=== PATIENT | male | born 1945 | race Caucasian/White ===

== ENCOUNTER → 2017-08-25 13:12 | Outpatient (POV) | payer MEDICARE, SELFPAY | DX: Z00.00 Encounter for general adult medical examination without abnormal findings (principal) ==

== ENCOUNTER → 2021-02-12 09:35 | Outpatient (CLI) | payer MEDICARE, OTHER, SELFPAY ==
[2021-02-12 10:50] LABS: Alanine Aminotransferase 12 U/L (12-78); Aspartate Amino Transferase 21 U/L (17-59); Blood Urea Nitrogen 17 mg/dl (9-20); Carbon Dioxide 30 mmol/L (22.0-30.0); Estimated Glomerular Filt Rate 83 ml/min (>60); GFR (African American) 100 ML/MIN (>60)
[2021-02-12 10:51] LABS: Alkaline Phosphatase 78 U/L (38-126); Anion Gap 13.5 mEq/L (5-15); Bilirubin,Total 0.5 mg/dl (0.2-1.3); Chloride 100 mmol/L (98-107); Potassium 4.5 mmoL/L (3.5-5.1); Sodium 139 mmol/L (136-145)
[2021-02-12 10:54] LABS: Albumin Level 4.2 g/dl (3.5-5.0); Albumin/Globulin Ratio 1.7 (1.1-1.8); Calcium 9.2 mg/dl (8.4-10.2); Cholesterol 186 mg/dl (140-200); Globulin 2.5 g/dL (1.3-3.2); Glucose 118 mg/dl (74-100); HDL Cholesterol 37 mg/dl (40-60); Total Protein,Serum 6.7 g/dl (6.3-8.2); Triglycerides 157 mg/dl (30-150); VLDL Cholesterol 31 mg/dL (0-40)
[2021-02-12 11:02] LABS: Direct LDL Cholesterol 129.74 mg/dL (100-129)
== END ==
PROVIDERS: Visit Provider Internal Medicine
DX: I10 Essential (primary) hypertension (principal); E78.5 Hyperlipidemia, unspecified
CPT/HCPCS: 36415; 80053; 80061

== ENCOUNTER → 2022-02-11 11:52 | Outpatient (CLI) | payer MEDICARE, OTHER, SELFPAY ==
[2022-02-11 12:29] LABS: Basophils # 0.1 K/mm3 (0-0.2); Basophils % 0.7 % (0.1-2.0); Eosinophils # 0.2 K/mm3 (0.0-0.4); Eosinophils % 2.1 % (0.1-12.0); Hematocrit 44.9 % (42.0-52.0); Hemoglobin 14.2 g/dL (14.1-18.0); Lymphocytes # 1.6 K/mm3 (0.7-4.5); Lymphocytes % 20.8 % (10-50); Mean Corpuscular HGB Conc 31.7 g/dL (31.8-35.4); Mean Corpuscular Hemoglobin 30.9 pg (27.0-31.2); Mean Corpuscular Volume 97.3 fl (80-94); Mean Platelet Volume 9.2 fl (7.4-10.4); Monocytes # 0.6 K/mm3 (0.1-1.0); Monocytes % 7.8 % (1.7-9.3); Neutrophils # 5.3 K/mm3 (1.8-7.8); Neutrophils % 68.6 % (37.0-80.0); Platelet Count 256 K/mm3 (142-424); Red Blood Count 4.61 M/mm3 (4.60-6.20); White Blood Count 7.7 K/mm3 (4.8-10.8)
[2022-02-11 12:56] LABS: Alanine Aminotransferase 15 U/L (12-78); Albumin Level 4.4 g/dl (3.5-5.0); Albumin/Globulin Ratio 1.8 (1.1-1.8); Alkaline Phosphatase 100 U/L (38-126); Anion Gap 12.4 mEq/L (5-15); Aspartate Amino Transferase 23 U/L (17-59); Bilirubin,Total 0.4 mg/dl (0.2-1.3); Blood Urea Nitrogen 16 mg/dl (9-20); Calcium 9.7 mg/dl (8.4-10.2); Carbon Dioxide 33 mmol/L (22.0-30.0); Chloride 98 mmol/L (98-107); Chol/HDL Ratio 5.6 (1-3.5); Cholesterol 203 mg/dl (140-200); Estimated Glomerular Filt Rate 82 ml/min (>60); GFR (African American) 100 ML/MIN (>60); Globulin 2.5 g/dL (1.3-3.2); Glucose 124 mg/dl (74-100); HDL Cholesterol 36 mg/dl (40-60); Potassium 4.4 mmoL/L (3.5-5.1); Sodium 139 mmol/L (136-145); Total Protein,Serum 6.9 g/dl (6.3-8.2); Triglycerides 184 mg/dl (30-150); VLDL Cholesterol 37 mg/dL (0-40)
[2022-02-11 13:08] LABS: Direct LDL Cholesterol 138.71 mg/dL (100-129)
[2022-02-11 13:23] LABS: Prostate Specific Ag, Diagnost 0.148 ng/ml (0.0-4.0)
== END ==
PROVIDERS: PCP Internal Medicine; Visit Provider Internal Medicine
DX: I10 Essential (primary) hypertension (principal); E78.5 Hyperlipidemia, unspecified; N40.1 Benign prostatic hyperplasia with lower urinary tract symptoms
CPT/HCPCS: 80053; 80061; 84153; 85025

== ENCOUNTER → 2022-08-12 14:24 | Outpatient (CLI) | payer MEDICARE, OTHER, SELFPAY ==
[2022-08-12 15:27] LABS: Hemoglobin A1C 6.3 % (4.0-6.0)
[2022-08-12 15:45] LABS: Chloride 96 mmol/L (98-107); Potassium 4.3 mmoL/L (3.5-5.1); Sodium 138 mmol/L (136-145)
[2022-08-12 15:48] LABS: Blood Urea Nitrogen 17 mg/dl (9-20); Estimated Glomerular Filt Rate 73 ml/min (>60); GFR (African American) 88 ML/MIN (>60)
[2022-08-12 15:49] LABS: Anion Gap 15.3 mEq/L (5-15); Calcium 8.9 mg/dl (8.4-10.2); Carbon Dioxide 31 mmol/L (22.0-30.0); Glucose 107 mg/dl (74-100)
== END ==
PROVIDERS: PCP Internal Medicine; Visit Provider Internal Medicine
DX: I25.10 Atherosclerotic heart disease of native coronary artery without angina pectoris (principal); E78.5 Hyperlipidemia, unspecified; E55.9 Vitamin D deficiency, unspecified; M15.0 Primary generalized (osteo)arthritis; Z95.1 Presence of aortocoronary bypass graft; Z79.899 Other long term (current) drug therapy; Z12.5 Encounter for screening for malignant neoplasm of prostate
CPT/HCPCS: 80048; 83036

== ENCOUNTER → 2022-12-02 09:52 | Outpatient (CLI) | payer MEDICARE, OTHER, SELFPAY ==
--- NOTE | 2022-12-02 09:57 | XR_ITS ---
FINAL REPORT CLINICAL HISTORY: SCIATICA RT LEG,RT HIP AND KNEE PAIN FINDINGS: Right knee Three views were obtained. There is no acute fracture or dislocation. There are mild degenerative changes of the medial compartment. Mild vascular calcification is identified. IMPRESSION: No acute process. Reviewed, Interpreted and Dictated by Antwan Tinoco III, MD Transcribed by Eduarda Rose Authenticated and [facility]
--- NOTE | 2022-12-02 09:57 | XR_ITS ---
FINAL REPORT CLINICAL HISTORY: SCIATICA RT LEG,RT HIP AND KNEE PAIN FINDINGS: Right hip/pelvis Three views were obtained. There is no acute fracture or dislocation. There are mild degenerative changes of both hips and in the lower lumbar spine. No soft tissue abnormality is identified. IMPRESSION: No acute process. Reviewed, Interpreted and Dictated by Antwan Tinoco III, MD Transcribed by Eduarda Rose Authenticated and [facility] [place] [place]
--- NOTE | 2022-12-02 09:57 | XR_ITS ---
FINAL REPORT CLINICAL HISTORY: SCIATICA RT LEG,RT HIP AND KNEE PAIN FINDINGS: LUMBAR SPINE Three views demonstrate no acute fracture. There are mild degenerative changes. There is disc space narrowing at L5-S1. There is ectasia of the abdominal aorta measuring 31 mm. There is no malalignment. IMPRESSION: Degenerative changes as above. Ectasia of the abdominal aorta. Reviewed, Interpreted and Dictated by Antwan Tinoco III, MD Transcribed by Eduarda Rose Authenticated and [facility]
== END ==
PROVIDERS: PCP Internal Medicine; Visit Provider Internal Medicine
DX: M54.31 Sciatica, right side (principal); M25.561 Pain in right knee; M25.551 Pain in right hip
CPT/HCPCS: 72110; 73502; 73562

== ENCOUNTER 2023-01-15 08:24 | Day surgery (SDC) | payer MEDICARE, OTHER, SELFPAY ==
[2023-01-15 08:44] VITALS: BP 131/65; PULSE 114; RESP 18; TEMP 36.1; O2SAT 97; BMI 33.2
--- NOTE | 2023-01-15 08:55 | EXP.ANES.CKL ---
[facility] Disclaimer: The information contained in this section may have been updated after the patient was seen, as this information can be updated by other users. Medical History Enlarged prostate HTN (hypertension) Surgical History History of hernia surgery Family History Other No significant family history Social History Smoking Status: Former smoker alcohol intake: never substance use type: denies use current occupational status: retired Travel in the last 8 weeks: None caffeine: No [facility] Anesthesia Checklist Patient Identification Patient Identification: Arm Band and Verbal (Name & ) Structural Data Admitted From: Home Planned Operative Procedure/s: Colonoscopy Consent for Planned Operative Procedure(s) Verified: Yes NPO Status Verified Time NPO: 00:00 Additional verifications Anesthesia Reactions: No Airway Assessment Mallampati Score:: Class III C-Spine Mobility Assessed: Yes TMJ Mobility Assessed: Yes Dentition: Poor Dentition Neurological Assessment Level of Consciousness: Awake Hx Seizures: No Numbness or tingling in extremities: No Anesthesia Plan Anesthesia Risk discussed: Yes Anesthesia Plan: Verified ASA Class: II Anesthesia Type: MAC
[2023-01-15 09:08] VITALS: O2SAT 94
--- NOTE | 2023-01-15 09:32 | ECG_ITS ---
APPROVED REPORT Exam: Resting ECG HR:97 bpm ECG Measurements Heart Rate 97 AXES MA 170 P 79 QRSd 95 QRS -62 QT 363 T 76 QTc 418 Conclusion SINUS RHYTHM WITH OCCASIONAL VENTRICULAR PREMATURE COMPLEXES LOW QRS VOLTAGE IN EXTREMITY LEADS [QRS DEFLECTION < 0.5 mV IN LIMB LEADS] INFERIOR MYOCARDIAL INFARCTION , OF INDETERMINATE AGE [40+ ms Q WAVE AND/OR ST/T ABNORMALITY IN II/aVF] ABNORMAL ECG UNCONFIRMED REPORT Electronically signed by : Tereso Mckinnon MD 01/15/2023 16:07:14
[2023-01-15 09:38] VITALS: BP 91/57; PULSE 94; RESP 17; TEMP 36.4; O2SAT 91
--- NOTE | 2023-01-15 09:39 | HMH.SCOPE ---
Procedure: Date: 01/15/23 Patient Date of :: 1945 Procedure Performed:: Colonoscopy to cecum with polypectomy using snare and biopsy forceps Indications:: Patient is a 77-year-old male whom I had previously performed colonoscopy on in 2012 at which time he had hyperplastic polyp and a tubular adenoma. He underwent follow-up colonoscopy on 10/18/2018 at which time he had numerous polyps mostly in the rectosigmoid colon region and all of these returned hyperplastic polyps except for a single tubular adenoma. The tubular adenoma was actually in the cecum. 3 to 5-year follow-up was recommended. Performing Provider:: Antwan Torres MD Referring Provider:: Charlie Cummings Sedation:: MAC sedation Procedure:: WasPatient history was obtained and appropriate physical examination was performed. Patient's medications and allergies were reviewed. Informed consent was obtained after explaining the benefits, alternatives, and risks of the procedure including, but not limited to, bleeding, perforation, missed lesions, and adverse reaction to anesthesia medications. Patient was transported to endoscopy procedure room. Patient was connected to monitoring devices. Throughout the procedure the patient's blood pressure, pulse, and oxygen saturations were monitored continuously. Patient identification and planned procedure were verified by the staff. Patient was positioned in lateral decubitus position. Digital anorectal exam was performed. Variable stiffness Olympus colonoscope was inserted and advanced under direct visualization to the cecum. Adequacy of the colonic preparation was noted. The colonoscope was advanced a short distance into the terminal ileum. The colonoscope was then slowly withdrawn while carefully examining the color, texture, anatomy, and integrity of the mucosoa circumferentially. Within the rectum retroflexion was performed. Colonoscope was then withdrawn. . Colonic preparation was good. Colonoscope was unable to be advanced into the terminal ileum. It was slowly withdrawn through the colon and a small adenomatous appearing polyp in the distal transverse colon removed with cold snare. Additional polyps were encountered in the left colon including proximal sigmoid, sigmoid polyp, and multiple rectosigmoid polyps. These were all hyperplastic appearing. Larger and more irregular appearing polyps were removed with cold biopsy forceps. . Findings:: Polyps as noted above Recommendations:: Likely repeat colonoscopy 5 years based on the presumed tubular adenoma in the distal transverse colon. If additional polyps in the left colon returned adenomatous likely repeat colonoscopy in 2 to 3 years. Complications:: None Estimated blood obtained (mL): 1 Colonoscopy Component Colonoscopy Component Was a colonoscopy performed during today's procedure?: Yes Recommended follow up colonoscopy of at least 10 years?: No If no, follow up colonoscopy recommended in ___ years?: See recommendations above Reason for not recommending >/= 10 yr follow-up interval?: See recommendations above
[2023-01-15 09:48] VITALS: BP 104/48; PULSE 96; RESP 18; O2SAT 100
[2023-01-15 09:58] VITALS: BP 114/57; PULSE 96; RESP 18; O2SAT 100
[2023-01-15 10:08] VITALS: BP 134/60; PULSE 95; RESP 18; O2SAT 100
--- NOTE | 2023-01-15 10:15 | SUR.PHASEII ---
0938: EKG obtained upon arrival to postop. Read by Chapito CALVILLO and was approved for discharge home.
== END 2023-01-15 10:30 | disposition home or self-care (01) ==
PROVIDERS: PCP Internal Medicine; Visit Provider Surgery
PROC: 0DJD8ZZ Inspection of Lower Intestinal Tract, Via Natural or Artificial Opening Endoscopic (ICD-10-PCS; CPT 45380; principal; 2023-01-15 09:30)
DX: Z12.11 Encounter for screening for malignant neoplasm of colon (principal); Z86.010 Personal history of colon polyps; D12.3 Benign neoplasm of transverse colon; K63.89 Other specified diseases of intestine
CPT/HCPCS: 45380; 45385; 88305; 93005; J2704

== ENCOUNTER 2023-01-20 14:00 | Outpatient (RCR) | payer MEDICARE, OTHER, SELFPAY ==
--- NOTE | 2022-12-14 17:20 | HMH.PTOPEV ---
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 Pt reports pain usually starts in the knee and radiates up to the hip and often to the lateral right calf. Pt denies back pain, distal ankle/foot pain or numbness/tingling. Pt describes pain as sharp. Pt reports pain is mostly aggravated by lifting the right leg while lying on his left side, ascending stairs, walking and standing. Pt reports he did have a back surgery 50 years ago where they cleaned out the back. Pt had lumbar, hip and knee radiographs at [facility] on 12/02/22 and states he was told he has arthritis. Pt reports his right leg often feels weak due to pain and feels like it could give out on him while going up the stairs. Pt denies issues with descending stairs . Pt denies falls. Pt denies n /v, fever, night sweats, abdominal pain or b/b dysfunction. Medical History: high blood pressure New diagnosis of cancer in past 12 No months? Chief Complaint Pain,Gives out/Unstable Symptom Type Ache,Sharp Symptoms Relieved By Rest/Positioning,OTC Meds Symptoms Aggravated By Standing,Physical Activity, Walking Prior Functional Limitations None Current Functional Limitations Lifting,Standing,Walking, Stairs Symptom Description Intermittent Level of pain today (0-10) 0 Pain scale - at its best (0-10) 0 Pain scale - at its worst (0-10) 7 Lumbopelvic Eval Posture Lumbar Spine Posture Standing Position Flattened Assistive device Assistive Devices None / NA Gait Observation General Gait Pattern Observation Wide Based Gait Palapation tenderness bilateral buttock tenderness Yes: piriformis, glute med Range of Motion Lumbar Spine Active Flexion Range of 65 Motion (degrees) Lumbar Spine Active Extension Range of 10 Motion (degrees) Left Lumbar Spine Lateral Flexion Active 15 Range of Motion (degrees) Right Lumbar Spine Lateral Flexion 15 Active Range of Motion (degrees) Manual Muscle Test Bilateral Knee Extension Strength Grade 5 Normal Knee Flexion Strength Grade 5 Normal Hip Flexion Strength Grade 5 Normal Hip Abduction Strength Grade 4 Good Hip External Rotation Strength Grade 4 Good Hip Internal Rotation Strength Grade 4 Good Hip Extension Strength Grade 4- Good- Ankle Dorsiflexion Strength Grade 5 Normal DTR Rt Patellar 2+ Lt Patellar 2+ Rt Gastroc/Soleus 2+ Lt Gastroc/Soleus 2+ Altered Sensation Bilateral Comment equal an intact to light touch sensation bilaterally Special Tests Hip Srinath (DANYELL) Test Positive Right Hip Piriformis Test Positive Right Sciatic Nerve Tension Test Negative Left,Negative Right Unilateral Straight Leg Raise (Lasegue) Negative Left,Negative Right Test Hip/Knee Eval ROM right Hip External Rotation Active Range of 35 Motion (degrees) Hip Internal Rotation Active Range of 28 Motion (degrees) Oswestry Index Section 1 Pain Intensity The pain is moderate and does not vary much Section 2 Personal Care (Washing,Dresing) increase the pain, but I manage not to change my way of doing it Section 3 Lifting I can lift heavy weights without extra pain Section 4 Walking I cannot walk at all without increasing pain Section 5 Sitting I can sit in my favorite chair for as long as I like Section 6 Standing I avoid standing because it increases the pain immediately Section 7 Sleeping I get pain in bed, but it does not prevent me from sleeping well Section 8 Social Life My social life is normal but increases the degree of pain Section 9 Traveling I get extra pain while traveling, but it does not compel me to seek al Section 10 Changing Degreee of Pain My pain seems to be getting better, but improvement is slow Score and Risk Level Oswestry Sc 22 Oswestry Risk Level Moderate Disability Outpatient Therapy Assessment Impairments Problems/Impairmments Palpation Tenderness,Impaired Range of Motion,Impaired Strength,Impaired Walking, Impaired Standing,Impaired Stair Climbing,Subjective C/O Pain,Impaired Self Care/Self Management Prognosis Rehab Potential Good Clinical Impression Consistent with Diagnosis Yes Short Term Goals Number of Weeks 3 Increase Range of Motion Yes Increase Strength Yes: Improve hip ext MMT to at least 4/5 to assist with function Decrease Subjective C/O Pain Yes: Improve pain at worst to 5/10 to improve overall QOL Patient to be Ind w/ HEP Yes [employer] Goals Number of Weeks 6 Increase Range of Motion Yes: Improve R hip IR/ER to at least 40, lumbar flex to 80, ext & LF to 15 Increase Strength Yes: Improve hip strength to 4 +/5 to assist with functional activities Increase Ability to Walk Yes: 5-10' to assist with overall function and improve activity level for health Improve Ability to Climb Stairs Yes: 1 flight with 1 HR with pain 3/10 or less to assist with overall function Decrease Subjective C/O Pain Yes: Improve pain at worst to 3/10 to improve overall QOL Improve Self Care/Self Management Yes: Improve DEXTER score to 15 or less to improve overall QOL Patient to be Ind w/ Advanced HEP Yes Outpatient Therapy Plan of Care Treatment Plan May Include Therapeutic Exercise Including Home Yes Exercise Program Manual Therapy Techniques Yes Neuromuscular Re-education Yes Therapeutic Activities to Return to Yes Previous Functional/Work Level ADL/Self Care Education Yes Mechanical Traction Yes Dry Needling Yes Thermal Modalities Yes Electrical Stimulation Yes Ultrasound/Phonophoresis Yes Iontophoresis Yes Massage Yes Group Therapy for Medicare Yes Eval/Re-Eval Yes Frequency Times per week 2 Duration Number of Weeks 4-6 Addendums This patient is a candidate for social No or vocational rehab? Patient/Guardian verbally acknowledges Yes understanding of treatment program and consents to further treatment? Patient/Guardian verbally acknowledges Yes understanding of diagnosis, prognosis and goals for treatment? Eval Complexity PT Charges 07094 - Low Complexity Shoulder/Elbow Eval Shoulder Objective Measurements Elbow Objective Measurements PHYSICIAN CERTIFICATION: I certify the specified therapy services for Antwan Sheehan are required, authorized, and reviewed every 30 days.
--- NOTE | 2023-01-20 15:12 | HMH.RHREAS ---
Rehab Reassessment Rehab OP Re-assessment Start: 12/14/22 14:49 Freq: Status: Active Protocol: Document 01/20/23 13:56 HETALLEXI (Rec: 01/20/23 15:12 CHRISTINA [id number]) E-signed By Allison Johnson, PT Oswestry Index Section 1 Pain Intensity The pain comes and goes and is very mild Section 2 Personal Care (Washing,Dresing) my way of washing or dressing even though it causes some pain Section 3 Lifting I can lift heavy weights, but it gives me extra pain Section 4 Walking I cannot walk more than one mile wihtout increasing pain Section 5 Sitting I can sit in my favorite chair for as long as I like Section 6 Standing I cannot stand more than 1 hour without increasing pain Section 7 Sleeping Because of my pain, my normal night's sleep is less than 6 hours sleep Section 8 Social Life My social life is normal but increases the degree of pain Section 9 Traveling I get extra pain while traveling, but it does not compel me to seek al Section 10 Changing Degreee of Pain My pain seems to be getting better, but improvement is slow Score and Risk Level Oswestry Sc 14 Oswestry Risk Level Mild Disability Rehab Re-assessment Subjective Subjective Pt reports he feels 75% improved since starting PT. Pt reports pain at worst as 1-2/ 10 on VAS scale. Pt reports pain is worse at night time and he has been taking 2 Ibuprofens at night to help him sleep. Pt reports he still has some difficulty with prolonged walking and stairs. Pt also reports intermittent anterior right knee pain described as an ache with such activities. Pt denies LBP or paresthesia. Pt reports he is scheduled to get a lumbar/hip MRI on 02/09/23. Pt requests to complete PT today and continue his HEP independently . Objective Objective Notes R hip AROM: IR 35, ER 40 degrees Lumbar AROM: flex 70, ext 20, LF 15 R hip MMT: 4+/5 grossly R knee MMT: 5/5 grossly Assessment Progress Assessment Progressing as Expected Assessment Notes Pt has attended 8 PT visits focused on R hip stretching/ strengthening, dry needling, manual therapy and modalities with good tolerance. Pt demonstrated improved R hip AROM, strength and DEXTER score this date since the initial evaluation. Overall, the pt met most PT goals and is appropriate to d/c to independent HEP to further progress. Pt was encouarged to proceed with R hip MRI if no further progress or regression occurs due to suspected R gluteus medius tear. Patient goals met ST/4 LT/7 Goals Not Met lumbar/hip AROM Revised Goals n/a Plan Plan D/c to independent HEP Time and Billing Re-Eval Time 10 Re-Eval Billing Units 1 PHYSICIAN CERTIFICATION: I certify the specified therapy services for Antwan Sheehan are required, authorized, and reviewed every 30 days.
== END 2023-01-20 15:00 | disposition home or self-care (01) ==
LOC: PT 14:00
PROVIDERS: PCP Internal Medicine; Visit Provider Internal Medicine
DX: M54.31 Sciatica, right side (principal); M54.50 Low back pain, unspecified
CPT/HCPCS: 20561; 97010; 97014; 97110; 97140; 97163; 97164; G0283

== ENCOUNTER → 2023-02-10 13:56 | Outpatient (CLI) | payer MEDICARE, OTHER, SELFPAY ==
[2023-02-10 14:57] LABS: Basophils % 0.6 % (0.1-2.0); Eosinophils # 0.2 K/mm3 (0.0-0.4); Eosinophils % 2.2 % (0.1-12.0); Hematocrit 43.2 % (42.0-52.0); Hemoglobin 14.3 g/dL (14.1-18.0); Lymphocytes # 1.5 K/mm3 (0.7-4.5); Lymphocytes % 19.8 % (10-50); Mean Corpuscular HGB Conc 33.1 g/dL (31.8-35.4); Mean Corpuscular Hemoglobin 32.4 pg (27.0-31.2); Mean Corpuscular Volume 97.9 fl (80-94); Monocytes # 0.5 K/mm3 (0.1-1.0); Monocytes % 6.8 % (1.7-9.3); Neutrophils # 5.2 K/mm3 (1.8-7.8); Neutrophils % 70.6 % (37.0-80.0); Platelet Count 239 K/mm3 (142-424); Red Blood Count 4.42 M/mm3 (4.60-6.20); Red Cell Distribution Width 13.1 % (11.5-17.5); White Blood Count 7.4 K/mm3 (4.8-10.8)
[2023-02-10 15:23] LABS: Alanine Aminotransferase 18 U/L (12-78); Albumin Level 4.2 g/dl (3.5-5.0); Albumin/Globulin Ratio 1.6 (1.1-1.8); Alkaline Phosphatase 76 U/L (38-126); Aspartate Amino Transferase 24 U/L (17-59); Bilirubin,Total 0.4 mg/dl (0.2-1.3); Blood Urea Nitrogen 15 mg/dl (9-20); Calcium 8.6 mg/dl (8.4-10.2); Carbon Dioxide 31 mmol/L (22.0-30.0); Chloride 100 mmol/L (98-107); Chol/HDL Ratio 5.7 (1-3.5); Cholesterol 193 mg/dl (140-200); Estimated Glomerular Filt Rate 82 ml/min (>60); GFR (African American) 100 ML/MIN (>60); Globulin 2.6 g/dL (1.3-3.2); Glucose 126 mg/dl (74-100); HDL Cholesterol 34 mg/dl (40-60); Sodium 136 mmol/L (136-145); Total Protein,Serum 6.8 g/dl (6.3-8.2); Triglycerides 209 mg/dl (30-150); VLDL Cholesterol 42 mg/dL (0-40)
[2023-02-10 15:33] LABS: Direct LDL Cholesterol 129.62 mg/dL (100-129)
[2023-02-10 23:16] LABS: Hemoglobin A1C 6.4 % (4.0-6.0)
== END ==
PROVIDERS: PCP Internal Medicine; Visit Provider Internal Medicine
DX: I10 Essential (primary) hypertension (principal); R73.01 Impaired fasting glucose; E78.5 Hyperlipidemia, unspecified; M15.0 Primary generalized (osteo)arthritis; M54.31 Sciatica, right side
CPT/HCPCS: 80053; 80061; 83036; 85025

== ENCOUNTER 2023-08-10 15:17 | Outpatient (CLI) | payer MEDICARE, OTHER, SELFPAY ==
[2023-08-10 14:41] LABS: Basophils % 0.5 % (0.1-2.0); Eosinophils # 0.1 K/mm3 (0.0-0.4); Eosinophils % 1.5 % (0.1-12.0); Hematocrit 46.5 % (42.0-52.0); Hemoglobin 14.5 g/dL (14.1-18.0); Lymphocytes # 1.1 K/mm3 (0.7-4.5); Lymphocytes % 14.6 % (10-50); Mean Corpuscular HGB Conc 31.1 g/dL (31.8-35.4); Mean Corpuscular Hemoglobin 31.4 pg (27.0-31.2); Mean Platelet Volume 9.1 fl (7.4-10.4); Monocytes # 0.5 K/mm3 (0.1-1.0); Monocytes % 6.7 % (1.7-9.3); Neutrophils # 5.8 K/mm3 (1.8-7.8); Neutrophils % 76.7 % (37.0-80.0); Platelet Count 235 K/mm3 (142-424); Red Cell Distribution Width 13.4 % (11.5-17.5); White Blood Count 7.6 K/mm3 (4.8-10.8)
[2023-08-10 14:59] LABS: Hemoglobin A1C 6.5 % (4.0-6.0)
[2023-08-10 15:04] LABS: Alanine Aminotransferase 18 U/L (12-78); Albumin Level 4.5 g/dl (3.5-5.0); Albumin/Globulin Ratio 1.7 (1.1-1.8); Alkaline Phosphatase 76 U/L (38-126); Anion Gap 15.4 mEq/L (5-15); Aspartate Amino Transferase 25 U/L (17-59); Bilirubin,Total 0.6 mg/dl (0.2-1.3); Blood Urea Nitrogen 21 mg/dl (9-20); Calcium 9.5 mg/dl (8.4-10.2); Carbon Dioxide 31 mmol/L (22.0-30.0); Chloride 97 mmol/L (98-107); Chol/HDL Ratio 6.1 (1-3.5); Cholesterol 230 mg/dl (140-200); Estimated Glomerular Filt Rate 73 ml/min (>60); GFR (African American) 88 ML/MIN (>60); Globulin 2.6 g/dL (1.3-3.2); Glucose 119 mg/dl (74-100); HDL Cholesterol 38 mg/dl (40-60); Potassium 4.4 mmoL/L (3.5-5.1); Sodium 139 mmol/L (136-145); Total Protein,Serum 7.1 g/dl (6.3-8.2); Triglycerides 239 mg/dl (30-150); VLDL Cholesterol 48 mg/dL (0-40)
[2023-08-10 15:15] LABS: Direct LDL Cholesterol 138.07 mg/dL (100-129)
[2023-08-10 15:35] LABS: Prostate Specific Ag Screen 0.2 ng/ml (0.0-4.0)
== END 2023-08-10 23:59 | disposition home or self-care (01) ==
LOC: LAB.DROPOF 15:18
PROVIDERS: PCP Internal Medicine; Visit Provider Internal Medicine
DX: R73.02 Impaired glucose tolerance (oral) (principal); E78.5 Hyperlipidemia, unspecified; I10 Essential (primary) hypertension; Z12.5 Encounter for screening for malignant neoplasm of prostate; Z87.891 Personal history of nicotine dependence
CPT/HCPCS: 80053; 80061; 83036; 85025; G0103

== ENCOUNTER 2024-02-07 14:48 | Outpatient (CLI) | payer MEDICARE, OTHER, SELFPAY ==
[2024-02-07 15:30] LABS: Alanine Aminotransferase 18 U/L (12-78); Albumin Level 4.3 g/dl (3.5-5.0); Albumin/Globulin Ratio 1.9 (1.1-1.8); Alkaline Phosphatase 75 U/L (38-126); Anion Gap 12.4 mEq/L (5-15); Aspartate Amino Transferase 27 U/L (17-59); Bilirubin,Total 0.5 mg/dl (0.2-1.3); Blood Urea Nitrogen 16 mg/dl (9-20); Calcium 9.3 mg/dl (8.4-10.2); Carbon Dioxide 32 mmol/L (22.0-30.0); Chloride 99 mmol/L (98-107); Chol/HDL Ratio 5.9 (1-3.5); Cholesterol 218 mg/dl (140-200); Estimated Glomerular Filt Rate 73 ml/min (>60); GFR (African American) 88 ML/MIN (>60); Globulin 2.3 g/dL (1.3-3.2); Glucose 126 mg/dl (74-100); HDL Cholesterol 37 mg/dl (40-60); Potassium 4.4 mmoL/L (3.5-5.1); Sodium 139 mmol/L (136-145); Total Protein,Serum 6.6 g/dl (6.3-8.2); Triglycerides 219 mg/dl (30-150); VLDL Cholesterol 44 mg/dL (0-40)
[2024-02-07 15:41] LABS: Direct LDL Cholesterol 152.08 mg/dL (100-129)
[2024-02-07 16:13] LABS: Hemoglobin A1C 6.5 % (4.0-6.0)
== END 2024-02-07 23:59 | disposition home or self-care (01) ==
LOC: LAB.DROPOF 14:48
PROVIDERS: PCP Internal Medicine; Visit Provider Internal Medicine
DX: I10 Essential (primary) hypertension (principal); E78.5 Hyperlipidemia, unspecified; R73.02 Impaired glucose tolerance (oral)
CPT/HCPCS: 80053; 80061; 83036

== ENCOUNTER 2024-11-09 08:50 | Outpatient (CLI) | payer MEDICARE, OTHER, SELFPAY ==
[2024-11-09 15:35] LABS: Hematocrit 40.7 % (42.0-52.0); Hemoglobin 13.1 g/dL (14.1-18.0); Immature Granulocytes % 0.3 %; Mean Corpuscular HGB Conc 32.2 g/dL (31.8-35.4); Mean Corpuscular Hemoglobin 31.3 pg (27.0-31.2); Mean Corpuscular Volume 97.4 fl (80-94); Nucleated Red Blood Cells % 0 %; Platelet Count 246 K/mm3 (142-424); Red Blood Count 4.18 M/mm3 (4.60-6.20); Red Cell Distribution Width-SD 48.0 fL; White Blood Count 6.2 K/mm3 (4.8-10.8)
[2024-11-09 15:46] LABS: Albumin Level 3.9 g/dl (3.5-5.0); Chloride 104 mmol/L (98-107); Potassium 4.5 mmoL/L (3.5-5.1); Sodium 138 mmol/L (136-145)
[2024-11-09 15:48] LABS: Blood Urea Nitrogen 19 mg/dl (9-20); Creatinine,Serum 0.90 mg/dl (0.66-1.25); Estimated Glomerular Filt Rate 82 ml/min (>60); GFR (African American) 99 ML/MIN (>60)
[2024-11-09 15:49] LABS: Alanine Aminotransferase 12 U/L (12-78); Albumin/Globulin Ratio 1.8 (1.1-1.8); Alkaline Phosphatase 66 U/L (38-126); Anion Gap 9.5 mEq/L (5-15); Aspartate Amino Transferase 21 U/L (17-59); Bilirubin,Total 0.3 mg/dl (0.2-1.3); Calcium 9.1 mg/dl (8.4-10.2); Carbon Dioxide 29 mmol/L (22.0-30.0); Cholesterol 168 mg/dl (140-200); Globulin 2.2 g/dL (1.3-3.2); Glucose 90 mg/dl (74-100); HDL Cholesterol 44 mg/dl (40-60); Total Protein,Serum 6.1 g/dl (6.3-8.2); Triglycerides 75 mg/dl (30-150)
[2024-11-09 18:47] LABS: Hemoglobin A1C 5.9 % (4.0-6.0)
== END 2024-11-09 23:59 ==
LOC: LAB.DROPOF 11-10 10:25
PROVIDERS: PCP Internal Medicine; Visit Provider Internal Medicine
DX: E78.5 Hyperlipidemia, unspecified (principal); I10 Essential (primary) hypertension; R73.02 Impaired glucose tolerance (oral); Z12.5 Encounter for screening for malignant neoplasm of prostate
CPT/HCPCS: 80053; 80061; 83036; 85025; G0103